=== PATIENT | male | born 1965 | race Caucasian/White ===

== ENCOUNTER 2023-09-26 04:20 | Emergency (ER) | payer MEDICAID ==
[~2023-09-26] VITALS: Ht 162.6 cm; Wt 68.2 kg
[~2023-09-26 04:20] MED LIST: KETOROLAC10 MG PO; NORCO 325 MG-51 TA1 PO
[2023-09-26] MEDS ORDERED: NORCO 325 MG-51 TA1 PO ×3 (05:27→12:09)
[2023-09-26 05:45] VITALS: BP 103/70
== END 2023-09-26 05:45 | disposition home or self-care (01) ==
LOC: ED 04:20
DX: S22.31XA Fracture of one rib, right side, initial encounter for closed fracture (principal); W17.89XA Other fall from one level to another, initial encounter; W22.8XXA Striking against or struck by other objects, initial encounter
CPT/HCPCS: J1885